=== PATIENT | male | born 1945 | race Caucasian/White ===

== ENCOUNTER 2016-10-27 08:02 | Observation (INO) | payer MEDICARE ==
[2016-10-27] VITALS (13 sets, daily range): BP systolic 113–171; BP diastolic 71–103; PULSE 69–88; TEMP 36.4–37.1; O2SAT 93–98; Ht 175.3 cm; Wt 81.7 kg
[~2016-10-27] VITALS: Ht 175.3 cm; Wt 81.7 kg
[2016-10-27] MEDS ORDERED: BIMA0.01 OP (08:40)
[2016-10-27] MEDS ORDERED: FENTANYL CITRATE INJ 50 MCG/1 ML 2 ML VIAL ONE (09:36)
[2016-10-27] MEDS ORDERED: MIDAZOLAM HCL 1 MG/ML 2ML VIAL ONE (09:36)
[2016-10-27] MEDS ORDERED: SODIUM CHLORIDE 0.9% 1000ML 250 ML IV PRN (10:46)
[2016-10-27] MEDS ORDERED: SODIUM CHLORIDE 0.9% 1000ML 1,000 ML IV ONE (10:46)
--- NOTE | 2016-10-27 10:48 | History & Physical Bridge Note ---
H&P Re-Evaluation Bridge Note: I have examined the patient, reviewed the History & Physical and in the interval since the performance of the History & Physical I have noted the following changes of clinical significance: No changes noted
[2016-10-27 10:49] LABS: ISTAT ARTERIAL BLOOD GAS HCO3 25 meq/L (19-24); ISTAT ARTERIAL BLOOD GAS PCO2 39 mmHg (35-46); ISTAT ARTERIAL BLOOD GAS PO2 64 mmHg (80-95); ISTAT ARTERIAL BLOOD GAS pH 7.41 (7.35-7.45); ISTAT CARBON DIOXIDE 26 mEq/l (24-31)
--- NOTE | 2016-10-27 10:54 | Cardiac Catheterization ---
Procedure Note Procedure Date Oct 27, 2016. Pre-Procedure Diagnosis Valvular Disease Post-Procedure Diagnosis Severe CAD, Normal Intracardiac Pressures Procedure(s) Performed Coronary Angiography, Left Heart Cath, Right Heart Cath, LV Angiography, Aortography Lithographic Proofer Apprentice Dr. Cochran Licensed Architect(s) None Estimated Blood Loss None Medication(s) Versed, Lidocaine 1% Summary of Findings Aortic stenosis and LMT disease Hemodynamics Rest Ao: 135/79 Final Ao: 144/86 LV: 158/5 RA: 2 RV: 26/3 PA: 19/11 PW: 5 Recommendations CABG, valve replacement Specimens None Radiation Exposure (mGy) 2126 Contrast (mls) 160 Fluids (cc crystalloids) 95 Procedural Complication(s) None Disposition Biomedical Engineering Technician Holding/Recovery ACC Data Cardiac Status Clinical evaluation leading to the procedure CAD Presntation: Stable angina Anginal Classification: CCS II Heart Failure: No Cardiogenic Shock w/in 24Hrs: No Cardiac Arrest w/in 24Hrs: No Imaging studies past 6 months: Yes Stress studies past 6 months: No Standard Exercise Stress Test: No Stress Echocardiogram: No Stress Testing w/SPECT MPI: No Coronary Anatomy Dominant: Right Left Main (% Stenosis): Proximal (95) LAD (% Stenosis): Ostial (95) Circumflex (% Stenosis): Ostial (95) RCA (% Stenosis): Normal Left Ventricular Angiography EF (%): 60 Mitral Regurgitation: None Aortography Aortic Regurgitation: None Diagnostic Status: Elective Closure Device Percutaneous Entry Location: Femoral Closure Device: Mynx Recommendations: CABG, valve replacement
[2016-10-27] MEDS ORDERED: ONDANSETRON INJ 2 MG/ML 2 ML VIAL IV PRN ×2 (11:00→12:45)
[2016-10-27] MEDS ORDERED: ATROPINE SULFATE 0.1 MG/ML 5ML SYR IV PRN (11:00)
[2016-10-27] MEDS ORDERED: ACETAMINOPHEN 325 MG TAB PO PRN ×2 (11:00→12:45)
--- NOTE | 2016-10-27 12:12 | CARDIAC CATH REPORT ---
PROCEDURE: 1. Left heart catheterization. 2. Right heart catheterization. 3. Coronary angiography. 4. Left ventriculography. 5. Aortography procedure. HISTORY OF PRESENT ILLNESS: This is a 70-year-old male patient who presented with exertional angina. He underwent an echocardiogram that showed aortic stenosis. PROCEDURE SUMMARY: The patient was seen and evaluated in the holding area of the concrete mixing plant laborer. Once informed consent was obtained, the patient was transferred to the cardiac catheterization lab where he was prepped and draped in the usual manner for a right transfemoral approach. Preformed 5-Puerto Rican diagnostic catheters were utilized for the coronary angiograms. A 7-[place] catheter was utilized for the right heart pressures and cardiac outputs. A dual lumen pigtail catheter was utilized to cross the aortic valve and to perform the left ventriculogram and aortogram. Following the procedure, the arterial site was closed with a Mynx device. The patient then was returned to the holding area of the concrete mixing plant laborer in stable condition. HEMODYNAMIC DATA: Right atrial pressure is 2 mmHg, right ventricular pressure is 26/3 mmHg, pulmonary artery pressure is 19/5 mmHg, pulmonary capillary wedge pressure is a mean of 5 mmHg. Aortic pressure is 138/77 mmHg, left ventricular pressure is 158/5 mmHg. Cardiac output by thermal dilution is 5 liters per minute. Cardiac output by Marquis equation is 4.4 liters per minute. The mean gradient across the aortic valve is 17 mmHg. The estimated aortic valve area by thermal dilution is 1.3 cm2, by Marquis equation is 1.2 cm2. LEFT VENTRICULOGRAM: The left ventricle is of normal size with normal systolic function. The mitral valve is competent. AORTOGRAPHY: The aortic root and ascending aorta are not dilated. There is evidence of calcification of the aortic valve with no significant aortic insufficiency. There is heavy calcification of the left coronary artery. CORONARY ANGIOGRAPHY: Selective injections of the left coronary artery reveal severe distal left main trunk disease extending into the ostium of the LAD and left circumflex arteries. The estimated stenosis is 95% to both the LAD and left circumflex arteries. The remainder of the left circumflex artery is widely patent and consists principally of a small first marginal branch and a large second marginal branch supplying the lateral myocardium. The LAD has luminal irregularities throughout its course, but is widely patent except for the mid segment of the LAD which has a long diffuse 50% stenosis. The right coronary artery is dominant. The right coronary artery is widely patent except for the proximal segment of the PDA which has an 80% stenosis. SUMMARY: The patient has severe coronary artery disease involving the left main trunk and ostium of the LAD and left circumflex arteries. The right coronary artery is dominant and the proximal portion of the PDA has a moderately severe stenosis. There is also moderate to severe aortic stenosis. Left ventricular function is within normal limits. RECOMMENDATIONS: Are for surgical evaluation regarding coronary artery bypass and aortic valve replacement.
[2016-10-27] MEDS ORDERED: POLYETHYLENE (MIRALAX) 17 GM PACK PO PRN (12:45)
[2016-10-27] MEDS ORDERED: ALUMINUM/MAGNESIUM/SIMETH (MAALOX MAX) 30 ML UDC PO PRN (12:45)
[2016-10-27] MEDS ORDERED: ZOLPIDEM TARTRATE 5 MG TAB PO PRN ×2 (12:45)
[2016-10-27] MEDS ORDERED: NITROGLYCERIN 0.4 MG SL PER TAB CHARGE SL PRN (12:45)
[2016-10-27] MEDS ORDERED: MAGNESIUM HYDROXIDE SUSP 30 ML UDC PO PRN (12:45)
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
[2016-10-27] MEDS ORDERED: IV FLUIDS COMPLETED PRN (14:15)
[2016-10-27] MEDS: SODIUM CHLORIDE 0.9% 1000ML 1,000 ML IV SCH (20:13)
[2016-10-28] VITALS (8 sets, daily range): BP systolic 108–146; BP diastolic 66–84; PULSE 71–81; TEMP 36.4–37; O2SAT 96–98
[2016-10-28] MEDS: SODIUM CHLORIDE 0.9% 1000ML 1,000 ML IV SCH (08:52)
[2016-10-28] MEDS ORDERED: ASPIRIN 81 MG ECTAB PO SCH (09:00)
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
[2016-10-28 11:26] LABS: HEMATOCRIT 44.3 % (42-52); MEAN CELL VOLUME 87.2 fL (80-100); MEAN CORPUSCULAR HEMOGLOBIN 31.5 pg (25-34); MEAN CORPUSCULAR HGB CONC 36.1 g/dl (32-36); MEAN PLATELET VOLUME 10.8 fL (7.4-10.4); PLATELET COUNT 154 K/uL (130-400); RED BLOOD COUNT 5.08 M/uL (4.7-6.1); WHITE BLOOD COUNT 7.89 K/uL (4.8-10.8)
[2016-10-28 11:36] LABS: PROTHROMBIN TIME (PATIENT) 11.1 SECONDS (9.0-12.0)
[2016-10-28] MEDS ORDERED: NURSING VERBAL MED ORDER ONE (12:30)
[2016-10-28] MEDS ORDERED: ENOXAPARIN 40 MG/0.4 ML SYR SQ SCH (13:00)
--- NOTE | 2016-10-28 16:51 | Discharge Instructions ---
Discharge Instructions Admission Reason for Admission: Aortic Valve Stenosis Discharge Discharge Diagnosis / Problem: Aortic stenosis and CAD Discharge Goals Goal(s): Therapeutic intervention Activity Recommendations Activity Level: Up Ad Alyssa . Additional Information Patient informed of condition: Yes Advance Directives: No DNR: No Level of Care: Other Communicable Disease: No Prognosis: Stable Martinez Catheter: No Current Hospital Diet Patient's current hospital diet: AHA Diet (Heart Healthy) Discharge Diet Recommended Diet: AHA Diet (Heart Healthy) Pending Studies Studies pending at discharge: no Medical Emergencies . Who to Call and When: Medical Emergencies: If at any time you feel your situation is an emergency, please call 911 immediately. . Non-Emergent Contact Non-Emergency issues call your: Chief Radiation Therapist . . "Provider Documentation" section prepared by Sahil Cochran. Core Measure Problem Core Measures: None
[2016-10-29] MEDS ORDERED: ENOXAPARIN 40 MG/0.4 ML SYR SQ SCH (09:00)
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
== END 2016-10-28 18:37 | disposition short-term general hospital (02) ==
LOC: C.CATH 08:02 → C.2T 12:39
PROVIDERS: ADMIT Internal Medicine Interventional Cardiology; ATTEND Internal Medicine Interventional Cardiology
DX: I35.0 Nonrheumatic aortic (valve) stenosis (principal); I25.10 Atherosclerotic heart disease of native coronary artery without angina pectoris; H40.9 Unspecified glaucoma

== ENCOUNTER 2018-02-26 21:07 | Emergency (ER) | payer MEDICARE ==
[~2018-02-26] VITALS: Ht 177.8 cm; Wt 81.2 kg
[~2018-02-26 21:07] MED LIST: BIMA0.01 OP
[2018-02-26 21:09] VITALS: Ht 177.8 cm; Wt 81.2 kg
[2018-02-26] MEDS ORDERED: COUGH DROP (SUGAR FREE) LOZ 24 LOZ/1 BOX LOZ STA (21:21)
[2018-02-26] MEDS ORDERED: SODIUM CHLORIDE 0.9% 1000ML 1,000 ML IV ONE (21:21)
[2018-02-26] MEDS ORDERED: IBUPROFEN 200 MG TAB PO STA (21:21)
[2018-02-26] MEDS ORDERED: ACETAMINOPHEN 500 MG TAB PO STA (21:21)
--- NOTE | 2018-02-26 21:23 | EMERGENCY ROOM VISIT NOTE ---
History Report prepared by Kamila: Shivani Waters Under the Supervision of: Dr. Marbin Redd M.D. 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 Positive cough, fevers , intermittent sore throat, phlegm, and weakness . Negative chills, nausea, vomiting, chest pain, SOB, weight gain, swelling in his legs, or recent travel. He notes that coughing improves dislodging the mucus that is stuck in his throat. He takes 2 baby aspirins a day and a cholesterol pill. 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 Negative weight gain, swelling in his legs, or recent travel. Review of Systems See HPI for pertinent positives and negatives. A total of ten systems were reviewed and were otherwise negative. Past Medical & Surgical Medical Problems: (1) Angina effort Surgical Problems: (1) H/O aortic valve replacement Family History No pertinent family history Social History Smoking Status: Never Smoker Smokeless Tobacco Use: Unknown Marital Status: Occupation Status: retired Current/Historical Medications Scheduled Aspirin (Aspirin 81), 162 MG PO QAM Atorvastatin (Lipitor), 20 MG PO DAILY Allergies Coded Allergies: No Known Allergies (Unverified , 02/26/18) Physical Exam Vital Signs Date Time Temp Pulse Resp B/P (MAP) Pulse Ox O2 Delivery O2 Flow Rate FiO2 02/26/18 23:53 97 20 136/80 98 02/26/18 23:00 37.7 98 20 137/82 98 Room Air 02/26/18 22:18 104 20 172/88 100 Room Air 02/26/18 21:55 107 02/26/18 21:52 108 20 146/85 98 Room Air 02/26/18 21:09 38.9 117 20 127/79 97 Room Air Physical Exam GENERAL: Awake, alert, well-appearing, NAD, Wearing glasses. HENT: Normocephalic, atraumatic. Enlarged uvula, no tonsillar swelling, no tonsillar or uvular deviation. EYES: Normal conjunctiva. Sclera non-icteric. PERRL. No anisocoria. NECK: Supple. No nuchal rigidity. FROM. RESPIRATORY: CTAB, no rhonchi, wheezing, crackles. CARDIAC: Tachycardic but regular, no MRG ABDOMEN: Soft, NTND, BS+ MSK: No chest wall TTP, no LE edema. NEURO: GCS 15, CN 2-12 intact, moves all 4s on command SKIN: No rash or jaundice noted. Midline sternotomy scar noted on chest Medical Decision & Procedures ER Provider Diagnostic Interpretation: Radiology results as stated below per my review and radiologist interpretation: CHEST ONE VIEW PORTABLE HISTORY: 72 years-old Male Evaluate Fever/Sepsis acute fever and sepsis COMPARISON: None available TECHNIQUE: Portable AP view of the chest FINDINGS: Cardiac silhouette is mildly enlarged. Prior median sternotomy. There is no pneumothorax, pleural effusion, focal airspace consolidation or overt pulmonary edema. The bones of the chest appear grossly intact. Suggested rotator cuff calcific tendinosis about the left shoulder. IMPRESSION: No acute process. The above report was generated using voice recognition software. It may contain grammatical, syntax or spelling errors. Electronically signed by: Rocco Mckeon M.D. 02/26/2018 9:45 PM Dictated Date/Time: 02/26/2018 9:44 PM Laboratory Results 02/26/18 21:45 Red Blood Count 5.59, Mean Corpuscular Volume 86.0, Mean Corpuscular Hemoglobin 30.6, Mean Corpuscular Hemoglobin Concent 35.6, Mean Platelet Volume 11.9, Neutrophils (%) (Auto) 83.3, Lymphocytes (%) (Auto) 9.0, Monocytes (%) (Auto) 7.4, Eosinophils (%) (Auto) 0.0, Basophils (%) (Auto) 0.1, Neutrophils # (Auto) 6.94, Lymphocytes # (Auto) 0.75, Monocytes # (Auto) 0.62, Eosinophils # (Auto) 0.00, Basophils # (Auto) 0.01 02/26/18 22:36 Test 02/26/18 21:45 02/26/18 21:50 02/26/18 22:35 02/26/18 22:36 White Blood Count 8.34 K/uL (4.8-10.8) Red Blood Count 5.59 M/uL (4.7-6.1) Hemoglobin 17.1 g/dL (14.0-18.0) Hematocrit 48.1 % (42-52) Mean Corpuscular Volume 86.0 fL (80-100) Mean Corpuscular Hemoglobin 30.6 pg (25-34) Mean Corpuscular Hemoglobin Concent 35.6 g/dl (32-36) Platelet Count 143 K/uL (130-400) Mean Platelet Volume 11.9 fL (7.4-10.4) Neutrophils (%) (Auto) 83.3 % Lymphocytes (%) (Auto) 9.0 % Monocytes (%) (Auto) 7.4 % Eosinophils (%) (Auto) 0.0 % Basophils (%) (Auto) 0.1 % Neutrophils # (Auto) 6.94 K/uL (1.4-6.5) Lymphocytes # (Auto) 0.75 K/uL (1.2-3.4) Monocytes # (Auto) 0.62 K/uL (0.11-0.59) Eosinophils # (Auto) 0.00 K/uL (0-0.5) Basophils # (Auto) 0.01 K/uL (0-0.2) RDW Standard Deviation 44.2 fL (36.4-46.3) RDW Coefficient of Variation 14.3 % (11.5-14.5) Immature Granulocyte % (Auto) 0.2 % Immature Granulocyte # (Auto) 0.02 K/uL (0.00-0.02) Influenza Type A Antigen Neg for Influ A (NEG) Influenza Type B Antigen POS for Influ B (NEG) Prothrombin Time 11.1 SECONDS (9.0-12.0) Prothromb Time International Ratio 1.1 (0.9-1.1) Activated Partial Thromboplast Time 34.2 SECONDS (21.0-31.0) Partial Thromboplastin Ratio 1.3 Lyme Disease IgG Antibody NEG (NEG) Lyme Disease IgM Antibody NEG (NEG) Anion Gap 6.0 mmol/L (3-11) Est Creatinine Clear Calc Drug Dose 54.7 ml/min Estimated GFR () 65.6 Estimated GFR (Non- 56.6 BUN/Creatinine Ratio 16.9 (10-20) Calcium Level 8.2 mg/dl (8.5-10.1) Phosphorus Level 2.3 mg/dl (2.5-4.9) Magnesium Level 1.6 mg/dl (1.8-2.4) Total Bilirubin 0.7 mg/dl (0.2-1) Direct Bilirubin 0.2 mg/dl (0-0.2) Aspartate Amino Transf (AST/SGOT) 32 U/L (15-37) Alanine Aminotransferase (ALT/SGPT) 27 U/L (12-78) Alkaline Phosphatase 52 U/L (45-117) Troponin I < 0.015 ng/ml (0-0.045) Total Protein 6.9 gm/dl (6.4-8.2) Albumin 3.4 gm/dl (3.4-5.0) Laboratory results reviewed by me Medications Administered Medications (Trade) Dose Ordered Sig/Ashish Route Start Time Stop Time Status Last Admin Dose Admin Sodium Chloride 1,000 ml @ 2,000 mls/hr Q30M ONCE IV 02/26/18 21:21 02/26/18 21:50 DC 02/26/18 21:47 2,000 MLS/HR Acetaminophen (Tylenol Tab) 1,000 mg NOW STAT PO 02/26/18 21:21 02/26/18 21:23 DC 02/26/18 21:42 1,000 MG Menthol (Nice Dwight) 1 dwight NOW STAT DWIGHT 02/26/18 21:21 02/26/18 21:23 DC 02/26/18 21:43 1 DWIGHT Ibuprofen (Advil Tab) 400 mg NOW STAT PO 02/26/18 21:21 02/26/18 21:23 DC 02/26/18 21:43 400 MG Magnesium Oxide (Mag-Ox Tab) 800 mg ONE STAT PO 02/26/18 23:28 02/26/18 23:29 DC 02/26/18 23:46 800 MG Potassium/ Phosphorus/Sodium (Phospha 250 Neutral 155-852-130 Mg) 2 tab ONE STAT PO 02/26/18 23:28 02/26/18 23:29 DC 02/26/18 23:46 2 TAB ECG Per My Interpretation Indication: other (flu like symptoms) Rate (beats per minute): 108 Rhythm: sinus tachycardia Findings: RBBB, no ectopy, other (normal axis, wide QRS ) Comparison ECG Date: no prior available ED Course 2114: The patient was evaluated in room C7. A complete history and physical exam was performed. 2120: Ordered Advil Tab 400 mg PO, Menthol 1 dwight DWIGHT, Tylenol Tab 1000 mg PO, Sodium Chloride 100o ml @ 2000 mls/hr IV 2324: Discussed the patient's case with Dr. Hardin, [facility]. He states the RBBB is not a significant finding. The patient can follow up as scheduled. 8: Ordered Potassium/Phosphorus/Sodium 2 tab PO, Magnesium Oxide 800 mg PO 2332: I reevaluated the patient. Discussed results and discharge instructions: He verbalized understanding and agreement. The patient is ready for discharge. 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 Positive cough, fevers , intermittent sore throat, phlegm, and weakness . Negative chills, nausea, vomiting, chest pain, SOB, weight gain, swelling in his legs, or recent travel. Differential diagnosis: Etiologies such as viral syndrome, tonsillitis, streptococcal pharyngitis, mononucleosis, peritonsillar abscess, retropharyngeal abscess, otitis, pneumonia , influenza, as well as others were entertained. Patient was seen and evaluated the bedside. Patient is a 72-year-old who does have a prior history of CABG and bioprosthetic AVR last year. Patient was noting is having some sore throat and mild cough. Patient denies any chest pains. Patient states he has felt weak but he describes his generalized weakness has had some feeling of being winded but this is only because he feels weak. The patient does take aspirin at baseline but is not taking any other medications for symptom control. On exam he is well-appearing. Posterior pharynx is clear. The patient does have mild Mik enlarged uvula however this may be his baseline. No bishnu-tonsillar swelling or uvular deviation. Patient is not stridulous. The patient did have mild tachycardia. The patient has no murmur noted. The patient does have a bioprosthetic aVR so the patient is not taking Coumadin. Patient did have blood work completed, EKG, troponin, chest x-ray and the patient was given medications and IV fluids. Patient's EKG did show a right bundle branch block. We have no prior to compare to. This may be as a result of his prior CABG. Patient's white blood cell count was within normal limits. Patient is not anemic. Chest x-ray is clear. Patient was positive for influenza B. I did have medical records obtained but there were no EKGs. I did have a record of a prior QRS being less than 120 ms. I believe most of these symptoms are related to his influenza. I did discuss the right bundle branch block with the on-call sewing demonstrator who believes that this is a benign finding and does not require further workup or treatment at this time. I did discuss the findings with the patient was told that he is outside the window for Tamiflu. Patient was told to continue to hydrate. Patient does live with another and does feel safe to go home. Patient did receive IV fluids and was feeling improved. Patient was also given recommendations for other [id number] at home treatments. Patient was told return if any worsening symptoms. Patient was given strict follow-up, discharge, and return precautions. All questions were answered. Patient was deemed suitable for outpatient follow-up at this time. Patient agreed with the plan of care and was safely discharged home. Medication Reconcilliation Current Medication List: was personally reviewed by me Blood Pressure Screening Patient's blood pressure: Normal blood pressure Blood pressure disposition: Did not require urgent referral Consults Time Called: [phone] Consulting Physician: [facility] Returned Call: [phone] Discussed the patient's case with [facility]. He states the RBBB is not a significant finding. The patient can follow up as scheduled. Impression Primary Impression: Influenza B Additional Impressions: Viral illness RBBB Scribe Attestation The scribe's documentation has been prepared under my direction and personally reviewed by me in its entirety. I confirm that the note above accurately reflects all work, treatment, procedures, and medical decision making performed by me. Departure Information Dispostion Home / Self-Care Referrals No Doctor, Assigned (PCP) Patient Instructions ED Flu, My [facility], Sore Throat - [facility], Sore Throats Self Care Additional Instructions Please return to the emergency department if you have worsening or recurrent symptoms not amenable to at-home treatment. Please call for a follow-up appointment with her primary care physician. Please take your medications as prescribed. If you have other concerns and/or complaints please feel free to also call your primary care physician's office or return the ED for further evaluation, management, and treatment. You may take tylenol 650 mg every 6 hours as needed for pain/fever unless told by your physician to not take it or have liver problems. You may take the tylenol w/ your aspirin. Take your medications as prescribed. You may consider OTC medications that help w/ sore throat. Please also consider tea with honey and lemon. You may also consider salt water gargles for sore throat. Please also continue to practice good oral hygiene i.e. tooth brushing , flossing, mouth wash, and avoiding alcohol or tobacco. You may consider Afrin or saline nasal sprays. Use the Afrin for no more than 2 days at a time as prolonged use may cause worsening congestion. You may also consider Vicks VapoRub, hot showers, or a humidifier. You may also try Zyrtec daily and Benadryl as needed per box instructions. You have been examined and treated today on an emergency basis only. This is not a substitute for, or an effort to provide, complete comprehensive medical care. It is impossible to recognize and treat all injuries or illnesses in a single emergency department visit. It is therefore important that you follow up closely with [facility], your PCP, and/or your specialist(s). Call as soon as possible for an appointment. Thank you for your time and consideration. I look forward to speaking with you again soon. Please don't hesitate to call us if you have any questions. Problem Qualifiers
--- NOTE | 2018-02-26 21:46 | DIAGNOSTIC IMAGING REPORT ---
CHEST ONE VIEW PORTABLE HISTORY: 72 years-old Male Evaluate Fever/Sepsis acute fever and sepsis COMPARISON: None available TECHNIQUE: Portable AP view of the chest FINDINGS: Cardiac silhouette is mildly enlarged. Prior median sternotomy. There is no pneumothorax, pleural effusion, focal airspace consolidation or overt pulmonary edema. The bones of the chest appear grossly intact. Suggested rotator cuff calcific tendinosis about the left shoulder. IMPRESSION: No acute process. The above report was generated using voice recognition software. It may contain grammatical, syntax or spelling errors. Electronically signed by: Rocco Mckeon M.D. 02/26/2018 9:45 PM Dictated Date/Time: 02/26/2018 9:44 PM
[2018-02-26 22:04] LABS: BASO % 0.1 %; BASO ABS # 0.01 K/uL (0-0.2); HEMATOCRIT 48.1 % (42-52); HEMOGLOBIN 17.1 g/dL (14.0-18.0); IG# 0.02 K/uL (0.00-0.02); LYMPH ABS # 0.75 K/uL (1.2-3.4); MEAN CORPUSCULAR HEMOGLOBIN 30.6 pg (25-34); MEAN CORPUSCULAR HGB CONC 35.6 g/dl (32-36); MEAN PLATELET VOLUME 11.9 fL (7.4-10.4); MONO % 7.4 %; MONO ABS # 0.62 K/uL (0.11-0.59); NEUT % 83.3 %; NEUT ABS # 6.94 K/uL (1.4-6.5); PLATELET COUNT 143 K/uL (130-400); RED CELL DISTRIBUTION WIDTH CV 14.3 % (11.5-14.5); RED CELL DISTRIBUTION WIDTH SD 44.2 fL (36.4-46.3); WHITE BLOOD COUNT 8.34 K/uL (4.8-10.8)
[2018-02-26] MEDS ORDERED: ASPI-435 PO (22:17)
[2018-02-26] MEDS ORDERED: ATOR-22 PO (22:17)
[2018-02-26 22:53] LABS: INFLUENZA B ANTIGEN POS for Influ B (NEG)
[2018-02-26 23:00] VITALS: TEMP 37.7
[2018-02-26 23:02] LABS: INR 1.1 (0.9-1.1); PTT PATIENT 34.2 SECONDS (21.0-31.0)
[2018-02-26 23:18] LABS: ALBUMIN 3.4 gm/dl (3.4-5.0); ALKALINE PHOSPHATASE 52 U/L (45-117); ALT/SGPT 27 U/L (12-78); AST/SGOT 32 U/L (15-37); BLOOD UREA NITROGEN 21 mg/dl (7-18); CALCIUM 8.2 mg/dl (8.5-10.1); CARBON DIOXIDE 28 mmol/L (21-32); CREATININE 1.26 mg/dl (0.60-1.40); GLUCOSE 109 mg/dl (70-99); PHOSPHORUS 2.3 mg/dl (2.5-4.9); POTASSIUM 3.6 mmol/L (3.5-5.1); SODIUM 133 mmol/L (136-145); TOTAL PROTEIN 6.9 gm/dl (6.4-8.2)
[2018-02-26] MEDS ORDERED: MAGNESIUM OXIDE 400 MG TAB PO STA (23:28)
[2018-02-26] MEDS ORDERED: POT PHOSPHATE MONOBASIC W/ SOD TAB PO STA (23:28)
[2018-02-26 23:53] VITALS: BP 136/80; PULSE 97; O2SAT 98
== END 2018-02-26 23:55 | disposition home or self-care (01) ==
LOC: C.EDB 21:09 → C.EDC 23:55
DX: J10.1 Influenza due to other identified influenza virus with other respiratory manifestations (principal); B34.9 Viral infection, unspecified; I45.10 Unspecified right bundle-branch block; Z79.82 Long term (current) use of aspirin; Z95.2 Presence of prosthetic heart valve; Z79.899 Other long term (current) drug therapy; Z95.1 Presence of aortocoronary bypass graft